=== PATIENT | female | born 2000 | race Caucasian/White ===

== ENCOUNTER 2021-04-28 16:48 | Emergency (ER) | payer OTHER ==
[~2021-04-28] VITALS: Ht 149.9 cm; Wt 38.6 kg
== END 2021-04-28 21:33 | disposition home or self-care (01) ==
LOC: ER 16:48
DX: O99.62 Diseases of the digestive system complicating childbirth (principal); K92.89 Other specified diseases of the digestive system; Z3A.16 16 weeks gestation of pregnancy; Z37.0 Single live birth; K52.9 Noninfective gastroenteritis and colitis, unspecified

== ENCOUNTER 2021-05-07 16:36 | Emergency (ER) | payer OTHER ==
[~2021-05-07] VITALS: Ht 144.8 cm; Wt 39.0 kg
[2021-05-07] MEDS ORDERED: MESALAMINE E0.375 GM PO (16:47)
[2021-05-07] MEDS ORDERED: PRIMACARE SOFT1 EACH PO (16:47)
== END 2021-05-07 21:37 | disposition home or self-care (01) ==
LOC: ER 16:36
DX: O99.62 Diseases of the digestive system complicating childbirth (principal); K92.9 Disease of digestive system, unspecified; Z3A.18 18 weeks gestation of pregnancy; Z37.0 Single live birth